=== PATIENT | female | born 1940 | race Hispanic/Latino ===

== ENCOUNTER 2020-11-28 10:30 | Inpatient (IN) | payer OTHER ==
[~2020-11-28] VITALS: Ht 157.5 cm; Wt 58.2 kg
[2020-11-28] VITALS (11 sets, daily range): BP systolic 106–129; BP diastolic 49–79
[2020-11-28] MEDS ORDERED: LABETALOL 20MG SYG IV ONE (11:00)
[2020-11-28] MEDS ORDERED: 0.9% NACL 500ML IV.SOLN 500 ML IV ONE ×3 (11:00→12:30)
[2020-11-28 11:13] LABS: BASOPHILS % (AUTO) 0.5 % (0.0-5.0); EOSINOPHILS % (AUTO) 0.4 % (0.0-8.0); HEMATOCRIT 31.3 % (36-48); LYMPHOCYTES % (AUTO) 7.9 % (21.0-51.0); MEAN CORPUSCULAR HEMOGLOBIN 28.2 pg (27.0-33.0); MEAN CORPUSCULAR HGB CONC 29.7 g/dL (32.0-36.0); MEAN CORPUSCULAR VOLUME 94.8 fL (79-99); MONOCYTES % (AUTO) 6.4 % (3.0-13.0); NEUTROPHILS % (AUTO) 80.8 % (40.0-77.0); PLATELET COUNT (AUTO) 147 K/uL (130-400); RED CELL DISTRIBUTION WIDTH 19.5 % (11.0-15.5); WHITE BLOOD COUNT (AUTO) 19.4 K/uL (4.8-10.8)
[2020-11-28 11:20] LABS: CREATININE 1.5 mg/dL (0.5-1.5); POTASSIUM 3.8 mmol/L (3.5-5.1)
[2020-11-28 11:31] LABS: ALBUMIN 3.5 g/dL (3.5-5.0); BILIRUBIN,TOTAL 0.6 mg/dL (0.2-1.0); INR 1.15 (0.85-1.15); PROTHROMBIN TIME 12.4 SEC (9.6-11.6); TOTAL PROTEIN, SERUM 6.9 g/dL (6.0-8.3)
[2020-11-28 11:32] LABS: PARTIAL THROMBOPLASTIN TIME 27.2 SEC (26.3-35.5)
[2020-11-28] MEDS ORDERED: ENOXAPARIN SODIUM 60 MG/0.6 ML SQ SCH (12:00)
[2020-11-28] MEDS ORDERED: LABETALOL 20MG VIAL IV ONE (12:30)
[2020-11-28] MEDS ORDERED: GLUCAGON 1MG KIT 1 MG ML IM PRN (14:00)
[2020-11-28] MEDS ORDERED: DEXTROSE 50%-WATER 50 ML DISP.SYRIN IV PRN (14:00)
[2020-11-28] MEDS ORDERED: AMLO-258 PO (14:44)
[2020-11-28] MEDS ORDERED: ATEN1TAB3 PO (14:44)
[2020-11-28] MEDS ORDERED: METOPROLOL TARTRATE 50 MG TAB ONE (14:52)
[2020-11-28] MEDS ORDERED: PHARMACY COMMUNICATION MISC SCH (15:30)
[2020-11-28] MEDS ORDERED: DILTIAZEM 125 MG/25 ML INJ 125 MG in 0.9%NACL 100ML 100 ML IV SCH (16:00)
[2020-11-28] MEDS ORDERED: INSULIN R PO SS1 SQ SCH (16:30)
[2020-11-28] MEDS: METOPROLOL TARTRATE 50 MG TAB PO SCH (20:07)
[2020-11-29] VITALS (8 sets, daily range): BP systolic 101–130; BP diastolic 50–81
[2020-11-29 04:22] LABS: BASOPHILS % (AUTO) 0.5 % (0.0-5.0); EOSINOPHILS % (AUTO) 0.2 % (0.0-8.0); HEMATOCRIT 27.2 % (36-48); LYMPHOCYTES % (AUTO) 11.5 % (21.0-51.0); MEAN CORPUSCULAR HEMOGLOBIN 28.2 pg (27.0-33.0); MEAN CORPUSCULAR HGB CONC 29.8 g/dL (32.0-36.0); MEAN CORPUSCULAR VOLUME 94.8 fL (79-99); MONOCYTES % (AUTO) 9.8 % (3.0-13.0); NEUTROPHILS % (AUTO) 73.7 % (40.0-77.0); NUCLEATED RED BLOOD CELLS 0.1 % (0.0-0.19); PLATELET COUNT (AUTO) 122 K/uL (130-400); RED BLOOD CELL COUNT(AUTO) 2.87 MIL/uL (4.00-5.50); RED CELL DISTRIBUTION WIDTH 19.6 % (11.0-15.5); WHITE BLOOD COUNT (AUTO) 17.1 K/uL (4.8-10.8)
[2020-11-29 04:29] LABS: HEMOGLOBIN A1C 5.5 % (4.0-6.0)
[2020-11-29 04:50] LABS: BILIRUBIN,TOTAL 0.7 mg/dL (0.2-1.0); CREATININE 1.4 mg/dL (0.5-1.5); POTASSIUM 3.1 mmol/L (3.5-5.1); THYROID STIMULATING HORMONE 4.1 uIU/mL (0.36-3.74); TOTAL PROTEIN, SERUM 5.9 g/dL (6.0-8.3)
[2020-11-29] MEDS ORDERED: ENOXAPARIN SODIUM 30 MG/0.3 ML SQ SCH (09:00)
[2020-11-29] MEDS ORDERED: DILTIAZEM 60MG TAB PO SCH (09:26)
[2020-11-29] MEDS: METOPROLOL TARTRATE 50 MG TAB PO SCH ×2 (10:17→21:17)
[2020-11-29] MEDS: ASPIRIN 81 MG EC TAB PO SCH (10:17)
[2020-11-29] MEDS: DILTIAZEM 60MG TAB PO SCH ×2 (14:39→21:17)
[2020-11-29] MEDS ORDERED: LIDOCAINE HCL-MPF 1% 2ML VIAL IV PRN (19:00)
[2020-11-29] MEDS ORDERED: POTASSIUM CHLORIDE 20MEQ/100ML 100 ML IV PRN (19:00)
[2020-11-29] MEDS ORDERED: KCL 20 MEQ ERTAB PO PRN (19:00)
[2020-11-29] MEDS: APIXABAN 5 MG TABLET PO SCH (21:15)
[2020-11-30 03:10] VITALS: BP 101/57
[2020-11-30 04:42] LABS: HEMATOCRIT 27.9 % (36-48); MEAN CORPUSCULAR HEMOGLOBIN 27.8 pg (27.0-33.0); MEAN CORPUSCULAR HGB CONC 29.7 g/dL (32.0-36.0); MEAN CORPUSCULAR VOLUME 93.3 fL (79-99); PLATELET COUNT (AUTO) 109 K/uL (130-400); RED BLOOD CELL COUNT(AUTO) 2.99 MIL/uL (4.00-5.50); RED CELL DISTRIBUTION WIDTH 19.4 % (11.0-15.5); WHITE BLOOD COUNT (AUTO) 17.8 K/uL (4.8-10.8)
[2020-11-30] MEDS: DILTIAZEM 60MG TAB PO SCH ×3 (05:42→21:54)
[2020-11-30 08:00] VITALS: BP 105/56
[2020-11-30] MEDS: APIXABAN 5 MG TABLET PO SCH ×2 (09:15→21:03)
[2020-11-30] MEDS: ASPIRIN 81 MG EC TAB PO SCH (09:15)
[2020-11-30] MEDS: METOPROLOL TARTRATE 50 MG TAB PO SCH ×2 (09:15→21:02)
[2020-11-30] MEDS ORDERED: MAGNESIUM 2GM PREMIX 50ML 50 ML IV PRN (11:30)
[2020-11-30 11:42] VITALS: BP 109/67
[2020-11-30] MEDS: POTASSIUM CHLORIDE 10% ELIXIR 20 MEQ/15 ML UDCUP PO PRN ×3 (13:34→18:25)
[2020-11-30 16:00] VITALS: BP 111/86
[2020-11-30 20:00] VITALS: BP 110/48
[2020-12-01] VITALS: BP 105/50
[2020-12-01 04:00] VITALS: BP 118/53
[2020-12-01] MEDS ORDERED: 0.9% NACL 500ML IV.SOLN 500 ML IV ONE (04:30)
[2020-12-01 05:24] LABS: HEMATOCRIT 29.3 % (36-48); MEAN CORPUSCULAR HEMOGLOBIN 27.9 pg (27.0-33.0); MEAN CORPUSCULAR HGB CONC 29.7 g/dL (32.0-36.0); MEAN CORPUSCULAR VOLUME 93.9 fL (79-99); PLATELET COUNT (AUTO) 108 K/uL (130-400); RED BLOOD CELL COUNT(AUTO) 3.12 MIL/uL (4.00-5.50); RED CELL DISTRIBUTION WIDTH 19.5 % (11.0-15.5); WHITE BLOOD COUNT (AUTO) 17.2 K/uL (4.8-10.8)
[2020-12-01] MEDS: DILTIAZEM 60MG TAB PO SCH ×2 (05:30→15:03)
[2020-12-01 05:45] LABS: CREATININE 1.3 mg/dL (0.5-1.5); MAGNESIUM 2.1 mg/dL (1.80-2.40); POTASSIUM 3.9 mmol/L (3.5-5.1)
[2020-12-01 08:00] VITALS: BP 111/47
[2020-12-01] MEDS: ASPIRIN 81 MG EC TAB PO SCH (08:56)
[2020-12-01] MEDS: METOPROLOL TARTRATE 50 MG TAB PO SCH (08:56)
[2020-12-01] MEDS: APIXABAN 5 MG TABLET PO SCH (08:57)
[2020-12-01 12:00] VITALS: BP 122/61
[2020-12-01] MEDS ORDERED: LEVOFLOXACIN 500 MG TABLET PO SCH (14:00)
== END 2020-12-01 16:00 | disposition home or self-care (01) | DRG 309 ==
LOC: EDH 10:30 → EDHIP 12:36 → OBSVTOIN 12:36 → INTOOBSV 12:36 → 4DH 17:07
PROVIDERS: ADMIT Internal Medicine Infectious Disease; ATTEND Internal Medicine Infectious Disease
PROC: B246ZZZ Ultrasonography of Right and Left Heart (ICD-10-PCS; principal; 2020-11-28)
DX: I48.91 Unspecified atrial fibrillation (principal); C92.10 Chronic myeloid leukemia, BCR/ABL-positive, not having achieved remission; J84.9 Interstitial pulmonary disease, unspecified; I10 Essential (primary) hypertension; N19 Unspecified kidney failure; D69.6 Thrombocytopenia, unspecified; M10.9 Gout, unspecified; J44.9 Chronic obstructive pulmonary disease, unspecified; I05.9 Rheumatic mitral valve disease, unspecified; I47.1 Supraventricular tachycardia; D64.9 Anemia, unspecified; R53.81 Other malaise; I48.19 Other persistent atrial fibrillation; Z90.710 Acquired absence of both cervix and uterus; Z87.891 Personal history of nicotine dependence; Z91.19 Patient's noncompliance with other medical treatment and regimen; Z92.21 Personal history of antineoplastic chemotherapy
CPT/HCPCS: 36415; 71045; 80048; 80053; 80061; 82550; 83036; 83735; 83874; 84439; 84443; 84484; 85025; 85027; 85610; 85730; 93005; 93306; 93356; 99291; G0378; J1650; J3475; J3490; J7040